=== PATIENT | female | born 1980 | race Two or more races ===

== ENCOUNTER 2017-03-02 12:42 | Emergency (ER) | payer MEDICAID ==
[~2017-03-02] VITALS: Ht 157.5 cm; Wt 59.0 kg
[2017-03-02 12:42] VITALS: BP 126/75
[~2017-03-02 12:42] MED LIST: EPINEPHrine 1mg/1ml Amp ONE
[2017-03-02] MEDS ORDERED: Solu-MEDROL 125mg Inj IVP ONE (13:00)
[2017-03-02] MEDS ORDERED: PREDNISONE20 MG ORAL (13:08)
[2017-03-02 13:14] VITALS: BP 116/70
--- NOTE | 2017-03-02 13:38 | Emergency Room Report ---
History of Present Illness General Chief Complaint: Allergic Reaction Source: Patient, EMS Present Illness HPI 36-year-old female, in no significant past medical history, presenting with rash to her body for one week. Patient states that she has been intermittently getting an itchy rash to her arms, as well as her son, states that they have dogs. States that she woke up this morning and rash was worse, on her arms chest and back, very itchy, took Benadryl this morning with minimal relief. Denies any throat swelling, tongue swelling, no shortness of breath, no wheezing. Patient has never had this issue in the past Denies any nausea vomiting diarrhea. No chest pain Allergies: Coded Allergies: No Known Allergies (Unverified , 03/02/17) Patient History Past Medical History: see triage record Past Surgical History: none Pertinent Family History: none Reviewed Nursing Documentation: PMH: Agreed, PSxH: Agreed Nursing Documentation-PMH Past Medical History: No Stated History Review of Systems All Other Systems: negative except mentioned in HPI Physical Exam Vital Signs Date Time Temp Pulse Resp B/P (MAP) Pulse Ox O2 Delivery O2 Flow Rate FiO2 03/02/17 12:27 98.1 132 18 126/75 99 Room Air Sp02 EP Interpretation: reviewed, normal General Appearance: alert, GCS 15, non-toxic, mild distress Head: normocephalic, atraumatic Eyes: bilateral eye normal inspection, bilateral eye PERRL, bilateral eye EOMI ENT: normal ENT inspection, normal pharynx, no angioedema, normal voice, moist mucus membranes Neck: normal inspection, full range of motion, supple Respiratory: normal inspection, lungs clear, normal breath sounds, no respiratory distress, no retraction, no wheezing, speaking full sentences, chest symmetrical Cardiovascular #1: normal inspection, regular rate, rhythm, no edema, normal capillary refill Cardiovascular #2: 2+ radial (R), 2+ radial (L) Gastrointestinal: normal inspection, non tender, soft, non-distended, no guarding Musculoskeletal: normal inspection, back normal, normal range of motion, non- tender Neurologic: normal inspection, alert, oriented x3, responsive, motor strength/ tone normal, sensory intact, normal gait, speech normal Psychiatric: normal inspection, judgement/insight normal, memory normal Skin: other - Diffuse raised urticarial rash noted on arms legs and abdomen. Blanching. Nontender Medical Decision Making Diagnostic Impression: Primary Impression: Allergic reaction ER Course 36-year-old female with allergic reaction Differential diagnosis Allergic reaction, at this time no anaphylaxis Plan: Solu-Medrol, fluids, Pepcid. No epi is required at this time ER course: Pt given meds with resolution of symptoms. Overall condition has improved. No respiratory symptoms or angioedema. pt iniitally tachy but has been stably around 80-90 rash much improved repeat lunch exam no wheezing Disposition: Patient is to be discharged to home with prescription of prednisone Strict return precautions to the ED discussed with patient including worsening/ persistent symptoms, throat swelling, or shortness of breath, which may indicate severe illness. Patient verbalized understanding. Patient is to follow up with their primary care doctor within 5 days. Patient agrees with plan. Rhythm Strip EP Interpretation: Yes Rate: 80 Rhythm: NSR, no PVCs, no ectopy Last Vital Signs Date Time Temp Pulse Resp B/P (MAP) Pulse Ox O2 Delivery O2 Flow Rate FiO2 03/02/17 13:14 97.6 106 18 116/70 99 Room Air Disposition: HOME, SELF-CARE Condition: Improved Scripts Prednisone* (PREDNISONE*) 20 Mg Tablet 40 MG ORAL DAILY for 10 Days, #5 TAB 0 Refills Prov: Cristal Lewis M.D. 03/02/17 Referrals: NOT CHOSEN [facility]/,REFERRING (PCP) Patient Instructions: Allergies Additional Instructions: PLEASE RETURN TO THE EMERGENCY ROOM IF YOU ARE EXPERIENCING CHEST PAIN, SHORTNESS OF BREATH, SWELLING OF THROAT, NAUSEA VOMITING Cristal Lewis M.D. Mar 02, 2017 13:38
[2017-03-02 13:40] VITALS: BP 121/83
[2017-03-02 14:22] VITALS: BP 106/66
[2017-03-02 14:26] VITALS: BP 106/66
== END 2017-03-02 14:28 | disposition home or self-care (01) ==
LOC: EDBD 12:42 → EMR 12:46
DX: T78.40XA Allergy, unspecified, initial encounter (principal); X58.XXXA Exposure to other specified factors, initial encounter; R21 Rash and other nonspecific skin eruption
CPT/HCPCS: 96374; 96375; 99284; J2930; S0028